=== PATIENT | male | born 1995 | race Native Hawaiian/Other Pacific Islander ===

== ENCOUNTER 2022-06-13 05:07 | Emergency (ER) | payer SELFPAY ==
[~2022-06-13] VITALS: Ht 177.8 cm; Wt 99.8 kg
[2022-06-13 05:07] VITALS: BP 128/62
--- NOTE | 2022-06-13 05:07 | NUR ---
PT LUIS ALBERTO GASCA, TAKEN TO CHAIR C
[2022-06-13 06:09] VITALS: BP 128/62
--- NOTE | 2022-06-13 06:10 | NUR ---
PATIENT BIB [facility] POLICE DEPT. PATIENT EXAMINED BY DR. MARCELINO PATIENT MEDICALLY CLEARED AND RELEASED IN CUSTODY IN STABLE CONDITION. ORIGINAL PRE-BOOK FORM GIVEN TO OFFICER [place] #[id number].
--- NOTE | 2022-06-13 06:10 | NUR ---
Patient discharged with v/s stable BY ERMD. Written and verbal after care instructions given and explained. Patient verbalized understanding. Police with in custody. All questions addressed prior to discharge. Advised to follow up with PMD.
== END 2022-06-13 06:10 ==
LOC: MED 05:07
DX: M79.661 Pain in right lower leg (principal); V49.88XA Car occupant (driver) (passenger) injured in other specified transport accidents, initial encounter; Y93.89 Activity, other specified; Y92.89 Other specified places as the place of occurrence of the external cause; Y99.8 Other external cause status
CPT/HCPCS: 71045; 73590; 99284